=== PATIENT | female | born 1945 | race Caucasian/White ===

== ENCOUNTER 2016-09-21 06:09 | Observation (INO) | payer MEDICARE, OTHER ==
[~2016-09-21] VITALS: Ht 162.6 cm; Wt 52.3 kg
[~2016-09-21 06:09] MED LIST: ANAS1TAB49 PO; CeFAZolin 1 GM/DEXTROSE 50 ML IV ONE; LORazepam 2 MG/ML VIAL IVP ONE; SODIUM CHLORIDE 0.9% 1,000 ML IV ONE; THYR113. PO
[2016-09-21] MEDS ORDERED: SODIUM CHLORIDE 0.9% 1,000 ML IV ONE (06:28)
[2016-09-21] MEDS ORDERED: CeFAZolin 1 GM/DEXTROSE 50 ML IV ONE (06:51)
[2016-09-21 06:56] LABS: BASOPHILS % (AUTO) 0.8 % (0.0-2.0); EOSINOPHILS % (AUTO) 0.6 % (1.0-6.0); HEMOGLOBIN 12.8 g/dL (12.0-16.0); LYMPHOCYTES # (AUTO) 1.8 K/uL (1.0-4.8); LYMPHOCYTES % (AUTO) 28.2 % (22.0-44.0); MEAN CORPUSCULAR HEMOGLOBIN 28.5 pg (26.0-34.0); MEAN CORPUSCULAR HGB CONC 32.7 G/dL (31.0-37.0); MEAN CORPUSCULAR VOLUME 87 fL (80-100); MONOCYTES # (AUTO) 0.5 K/uL (0.1-1.0); MONOCYTES % (AUTO) 7.7 % (2.0-9.0); NEUTROPHILS % (AUTO) 62.7 % (40.0-70.0); PLATELET COUNT (AUTO) 249 K/uL (150-450); RED BLOOD CELL COUNT(AUTO) 4.47 MIL/uL (4.00-5.20); RED CELL DISTRIBUTION WIDTH 12.6 % (11.5-14.5); WHITE BLOOD COUNT (AUTO) 6.4 K/uL (4.5-11.0)
[2016-09-21 07:04] LABS: PROTHROMBIN TIME 10.1 SEC (9.4-11.6)
[2016-09-21] MEDS ORDERED: LORazepam 2 MG/ML VIAL ONE (08:08)
[2016-09-21] MEDS ORDERED: LIDOCAINE HCL/PF 1% 30 ML VIAL ONE (08:43)
[2016-09-21] MEDS ORDERED: ACETAMINOPHEN 650 MG/20.3 ML SOLUTION UDCUP PO ONE (12:00)
[2016-09-21] MEDS ORDERED: OxyCODONE HCL/ACETAMINOPHEN 10-325 MG TABLET PO PRN (12:45)
[2016-09-21 14:00] VITALS: BP 125/59
[2016-09-21] MEDS ORDERED: INFLUENZA VIRUS VACCINE QVS 2016-17 (3YR+)/PF 60 MCG/0.5 ML SYRINGE IM ONE (15:45)
[2016-09-21] MEDS ORDERED: PNEUMOCOCCAL VACCINE POLYVALENT 0.5 ML VIAL [PPSV23] IM ONE (15:45)
[2016-09-21 15:53] VITALS: BP 139/63
[2016-09-21 20:28] VITALS: BP 123/51
[2016-09-21] MEDS ORDERED: FentaNYL CITRATE-PF 100 MCG/2 ML VIAL IVP ONE (23:50)
[2016-09-21] MEDS ORDERED: KETAMINE HCL 50 MG/ML 10 ML VIAL IVP ONE (23:50)
[2016-09-21] MEDS ORDERED: PROPOFOL 1% 20 ML VIAL IVP ONE (23:50)
[2016-09-21] MEDS ORDERED: MIDAZOLAM HCL 2 MG/2 ML VIAL IVP ONE (23:50)
[2016-09-22 03:45] VITALS: BP 137/72
== END 2016-09-22 04:10 | disposition home or self-care (01) ==
LOC: RADMN 06:09 → 4E 06:10 → EDSTATUS 08:00 → UNDODISOB 09-22 04:10
PROVIDERS: ADMIT Hospitalist; ATTEND Hospitalist
DX: N63 Unspecified lump in breast (principal)
CPT/HCPCS: 19499; 36415; 76942; 85025; 85610; 87081; G0378 ×2; J0690; J2060; J2250; J2704; J3010; J3490 ×2; J7030

== ENCOUNTER 2017-08-30 09:37 | Day surgery (SDC) | payer MEDICARE, OTHER ==
[~2017-08-30] VITALS: Ht 162.6 cm; Wt 52.7 kg
[~2017-08-30 09:37] MED LIST changes: -LORazepam 2 MG/ML VIAL IVP ONE; +LORazepam 2 MG/ML VIAL IVP PRN
[2017-08-30] MEDS ORDERED: SODIUM CHLORIDE 0.9% 1,000 ML IV ONE (09:57)
[2017-08-30] MEDS ORDERED: CeFAZolin 1 GM/DEXTROSE 50 ML IV ONE (09:57)
[2017-08-30] MEDS ORDERED: FentaNYL CITRATE-PF 100 MCG/2 ML VIAL ONE (11:26)
[2017-08-30] MEDS ORDERED: MIDAZOLAM HCL 2 MG/2 ML VIAL ONE ×2 (11:27→12:13)
[2017-08-30] MEDS ORDERED: FentaNYL CITRATE-PF 100 MCG/2 ML VIAL IVP ONE (12:17)
[2017-08-30] MEDS ORDERED: MIDAZOLAM HCL 2 MG/2 ML VIAL IVP ONE (12:17)
[2017-08-30] MEDS ORDERED: OxyCODONE HCL/ACETAMINOPHEN 5-325 MG TABLET PO PRN ×2 (12:45)
[2017-08-30] MEDS ORDERED: SODIUM CHLORIDE 0.9% 1,000 ML IV SCH (12:45)
[2017-08-30] MEDS ORDERED: HYDROmorphone 2 MG/ML SYRINGE IVP PRN (12:45)
[2017-08-30] MEDS ORDERED: HYDROmorphone HCL 2 MG TABLET PO ONE (12:45)
== END 2017-08-30 14:55 | disposition home or self-care (01) ==
LOC: SURGERY 09:37 → EDSTATUS 11:30 → SURGERY 14:55
PROVIDERS: ATTEND Radiology Diagnostic Radiology
DX: C79.51 Secondary malignant neoplasm of bone (principal); Z98.890 Other specified postprocedural states; Z85.3 Personal history of malignant neoplasm of breast; Z79.899 Other long term (current) drug therapy
CPT/HCPCS: 20983; 99152; 99153; C2618; J0690; J2250; J3010; J7030